=== PATIENT | female | born 1965 | race Caucasian/White ===

== ENCOUNTER 2018-04-17 10:08 | Emergency (ER) | payer OTHER, BC ==
[~2018-04-17] VITALS: Ht 165.1 cm; Wt 77.1 kg
[2018-04-17 11:25] VITALS: BP 142/101
== END 2018-04-17 11:15 | disposition home or self-care (01) ==
LOC: ER 10:08
DX: M25.421 Effusion, right elbow (principal); W10.8XXA Fall (on) (from) other stairs and steps, initial encounter; Y93.89 Activity, other specified; Y92.89 Other specified places as the place of occurrence of the external cause; Y99.8 Other external cause status